=== PATIENT | female | born 1995 | race African-American/Black ===

== ENCOUNTER 2017-12-08 16:28 | Emergency (ER) | payer OTHER, SELFPAY ==
[2017-12-08 17:03] LABS: Bilirubin Negative (Negative); Blood, Urine Small (Negative); Clarity CLEAR (Clear); Glucose, Urine (Dipstick) Negative (Negative); Leukocyte Small (Negative); Nitrite Negative (Negative); Protein, Urine (Dipstick) Negative (Neg-Trace)
[2017-12-08 17:04] LABS: Pregnancy Test - Urine (BHCG) Negative (Negative); Pregu Control Background? CLEAR/WHITE (CLR/WHITE); Pregu Control Bar Appear? YES (CONTROL BAR)
[2017-12-08 17:05] LABS: Bacteria/HPF Rare-Few HPF (None Seen); Hyaline Casts/LPF 0-3 HYALINE CAST LPF (0-3 Hyaline); Pathc Cast-AUWi Flag 0.43 (0-2.49)
[2017-12-08] MEDS ORDERED: Ondansetron ODT 4 MG TAB ONE (17:31)
== END 2017-12-08 18:30 | disposition home or self-care (01) ==
LOC: ERS 16:28
DX: R11.0 Nausea (principal)
CPT/HCPCS: 81003; 81015; 81025; 87086; 99283; Q0162

== ENCOUNTER 2017-12-27 16:21 | Emergency (ER) | payer SELFPAY ==
[2017-12-27 16:45] LABS: #Eosinphils 0.2 thou/uL (0.0-0.7); #Lymphocytes 2.6 thou/uL (1.20-3.40); #Monocytes 0.7 thou/uL (0.11-0.59); #Neutrophils 3.2 thou/uL (1.40-6.50); %Basophils 0.7 % (0.0-1.0); %Eosinophils 2.9 % (0.0-10.0); %Lymphocytes 38.7 % (21.0-51.0); %Monocytes 10.4 % (0.0-10.0); %Neutrophils 47.3 % (42.0-75.0); Mean Corpuscular HGB CONC 33.2 g/dL (32.0-36.0); Mean Corpuscular Hemoglobin 24.1 pg (27.0-31.0); Mean Corpuscular Volume 72.7 fL (78.0-98.0); Mean Platelet Volume 8.2 fL (7.4-10.4); Platelet Count 302 thou/uL (130-400); RBC Distribution Width 13.6 % (11.5-14.5); Red Blood Cell (RBC) Count 4.99 mill/uL (4.20-5.40); White Blood Cell (WBC) Count 6.8 thou/uL (4.8-10.8)
[2017-12-27 17:05] LABS: ALT (SGPT) 10 U/L (8-55); AST (SGOT) 10 U/L (5-34); Albumin 4.1 g/dL (3.5-5.0); Alkaline Phosphatase 66 U/L (40-150); Anion Gap 12 mmol/L (10-20); BUN (Urea Nitrogen) 12 mg/dL (7.0-18.7); Bilirubin, Total 0.2 mg/dL (0.2-1.2); Calc. Creatinine Clearance 0 mL/min (70-130); Calcium 9.9 mg/dL (7.8-10.44); Carbon Dioxide 24 mmol/L (22-29); Chloride 107 mmol/L (98-107); Estimated GFR-MDRD Greater than 90; Globulin 3.2 g/dL (2.4-3.5); Glucose 81 mg/dL (70-105); MDiff Complete? YES; Microcytosis SLIGHT = 6-15 cells (100X) (0-5/hpf); PLT Morphology Comment Appears Adequate; Polychromasia SLIGHT = 2-3 cells (100X) (0-2/hpf); Potassium 3.8 mmol/L (3.5-5.1); Protein, Total 7.3 g/dL (6.0-8.3); Sodium 139 mmol/L (136-145)
== END 2017-12-27 17:21 | disposition left against medical advice (07) ==
LOC: ERS 16:21
DX: Z53.21 Procedure and treatment not carried out due to patient leaving prior to being seen by health care provider (principal)
CPT/HCPCS: 36415; 80053; 85025

== ENCOUNTER 2018-02-02 14:20 | Emergency (ER) | payer SELFPAY ==
[2018-02-02 15:52] LABS: Bilirubin Negative (Negative); Blood, Urine Negative (Negative); Clarity CLEAR (Clear); Glucose, Urine (Dipstick) Negative (Negative); Leukocyte Moderate (Negative); Nitrite Negative (Negative); Protein, Urine (Dipstick) Negative (Neg-Trace); Specific Gravity, Urine 1.026 (1.002-1.036); pH, Urine 7.5 (5.0-9.0)
[2018-02-02 15:54] LABS: Pregnancy Test - Urine (BHCG) POSITIVE (Negative); Pregu Control Background? CLEAR/WHITE (CLR/WHITE); Pregu Control Bar Appear? YES (CONTROL BAR); Specific Gravity 1.026 (1.002-1.036)
[2018-02-02 15:55] LABS: Bacteria/HPF None Seen HPF (None Seen); Hyaline Casts/LPF 0-3 HYALINE CAST LPF (0-3 Hyaline); Pathc Cast-AUWi Flag 0.29 (0-2.49); Squamous Epithelial 0-3 HPF (0-3)
[2018-02-03 22:22] LABS: Chlamydia by PCR Not Detected (NotDetected); GC by PCR Not Detected (NotDetected)
== END 2018-02-02 18:01 | disposition home or self-care (01) ==
LOC: ERS 14:20
DX: O98.811 Other maternal infectious and parasitic diseases complicating pregnancy, first trimester (principal); B37.3 Candidiasis of vulva and vagina; Z3A.00 Weeks of gestation of pregnancy not specified
CPT/HCPCS: 81003; 81015; 81025; 87480; 87491; 87510; 87591; 87660; 99283

== ENCOUNTER 2018-02-15 00:39 | Emergency (ER) | payer OTHER, SELFPAY ==
[2018-02-15 01:37] LABS: Bilirubin Negative (Negative); Blood, Urine Moderate (Negative); Clarity CLEAR (Clear); Glucose, Urine (Dipstick) Negative (Negative); Leukocyte Negative (Negative); Nitrite Negative (Negative); Protein, Urine (Dipstick) Negative (Neg-Trace); Specific Gravity, Urine 1.012 (1.002-1.036); Urobilinogen 0.2 mg/dL (0.2-1.0)
[2018-02-15 01:39] LABS: Bacteria/HPF None Seen HPF (None Seen); Hyaline Casts/LPF 4-6 HYALINE CAST LPF (0-3 Hyaline); Pathc Cast-AUWi Flag 1.16 (0-2.49); Squamous Epithelial 0-3 HPF (0-3); WBC/HPF 0-3 HPF (0-3)
--- NOTE | 2018-02-15 08:41 | ULT ---
PRELIMINARY REPORT/[facility]/EMERGENTY AFTER-HOURS PROCEDURE US First Trimester, Transabdominal CLINICAL HISTORY: Signs and symptoms; Lmp or gestational age (in weeks): 6w6d; Antepartum complicatio ns; Bleeding; ; Patient HX: Light bleeding x 1 day TECHNIQUE: Real-time transabdominal obstetrical ultrasound of the maternal pelvis and a first trimest er with image documentation. COMPARISON: No relevant prior studies available. FINDINGS: Gestation: Single intrauterine gestational sac with mean sac diameter measuring 2.01 cm. The crown-ru mp length measures 0.8 cm. There is a small yolk sac. cardiac activity measures 132 bpm. Small crescentic hypoechoic area along the inferior aspect of the gestational sac measuring approximately 1.1 x 0.7 x 0.8 cm. Placenta/amniotic fluid: Cannot be adequately evaluated due to the early gestational age. Uterus/cervix: The uterus is anteverted and measures 11.5 x 6.1 x 6.2 cm. No myometrial mass. Ovaries: Right and left ovarian measurements are 2.7 x 2 x 3.1 cm and 2.6 x 2 x 3.6 cm, respectively. No mass. Free fluid: No free fluid. IMPRESSION: 1. Single live intrauterine gestation. Small subchorionic hemorrhage. 2. Estimated gestational age by ultrasound is 6 weeks 6 days. 3. Estimated due date by ultrasound is 10/05/2018. Thank you for allowing us to participate in the care of your patient. Dictated and Authenticated by: Macy Howard MD 02/15/2018 2:15 AM Central Time ([place] & [place]) FINAL REPORT PELVIS ULTRASOUND: HISTORY: First-trimester bleeding. Light bleeding. TECHNIQUE: Transabdominal and endovaginal imaging of the pelvis is performed. Ovaries are interrogated with gra y scale, color flow, Doppler imaging, and spectral waveform analysis. FINDINGS: This report is in agreement with the preliminary report by [facility]. A single live intrauterine gestation with heart tones at a rate of 132 b.p.m. Small subchorionic hemorrhage is noted. POS: [facility]
[2018-02-15 17:12] LABS: Chlamydia by PCR DETECTED (NotDetected); GC by PCR Not Detected (NotDetected)
== END 2018-02-15 02:48 | disposition home or self-care (01) ==
LOC: ERS 00:39
DX: O20.0 Threatened abortion (principal); Z3A.01 Less than 8 weeks gestation of pregnancy
CPT/HCPCS: 36415; 76856; 81003; 81015; 84702; 86900; 86901; 87491; 87591; 93976; 99284

== ENCOUNTER 2018-02-16 09:57 | Emergency (ER) | payer MEDICAID, OTHER ==
[2018-02-16] MEDS ORDERED: Lidocaine 1% PF 5 ML VIAL ONE (11:54)
[2018-02-16] MEDS ORDERED: Azithromycin 250 MG TAB ONE (11:54)
[2018-02-16] MEDS ORDERED: cefTRIAXone\\ROCEPHIN 250 MG VIAL ONE (11:54)
== END 2018-02-16 13:01 | disposition home or self-care (01) ==
LOC: ERS 09:57 → ER/OP 13:01
DX: Z51.89 Encounter for other specified aftercare (principal)
CPT/HCPCS: 96372; J0696; J2001

== ENCOUNTER 2018-03-15 03:28 | Emergency (ER) | payer OTHER | END 2018-03-15 03:50 | disposition home or self-care (01) | LOC: ERS 03:28 | DX: O99.611 Diseases of the digestive system complicating pregnancy, first trimester (principal); K04.7 Periapical abscess without sinus; Z3A.11 11 weeks gestation of pregnancy | CPT/HCPCS: 99282 ==

== ENCOUNTER 2018-03-17 08:16 | Emergency (ER) | payer OTHER ==
[2018-03-17 09:22] LABS: Hemoglobin 11.6 g/dL (12.0-16.0); Mean Corpuscular Hemoglobin 23.2 pg (27.0-31.0); Mean Corpuscular Volume 72.5 fL (78.0-98.0); Mean Platelet Volume 8.7 fL (7.4-10.4); Platelet Count 287 thou/uL (130-400); RBC Distribution Width 14.2 % (11.5-14.5); Red Blood Cell (RBC) Count 4.98 mill/uL (4.20-5.40); White Blood Cell (WBC) Count 6.9 thou/uL (4.8-10.8)
[2018-03-17 09:45] LABS: ALT (SGPT) Less than 7 U/L (8-55); AST (SGOT) 12 U/L (5-34); Albumin 3.9 g/dL (3.5-5.0); Alkaline Phosphatase 41 U/L (40-150); Anion Gap 9 mmol/L (10-20); BUN (Urea Nitrogen) 10 mg/dL (7.0-18.7); Bilirubin, Total 0.2 mg/dL (0.2-1.2); Calc. Creatinine Clearance 0 mL/min (70-130); Calcium 9.4 mg/dL (7.8-10.44); Carbon Dioxide 24 mmol/L (22-29); Chloride 106 mmol/L (98-107); Estimated GFR-MDRD Greater than 90; Globulin 3.4 g/dL (2.4-3.5); Glucose 80 mg/dL (70-105); Potassium 3.9 mmol/L (3.5-5.1); Protein, Total 7.3 g/dL (6.0-8.3); Sodium 135 mmol/L (136-145)
[2018-03-17 09:47] LABS: #Basophils 0.1 thou/uL (0.0-0.2); #Eosinphils 0.1 thou/uL (0.0-0.7); #Lymphocytes 2.3 thou/uL (1.20-3.40); #Monocytes 0.7 thou/uL (0.11-0.59); #Neutrophils 3.7 thou/uL (1.40-6.50); %Basophils 1.1 % (0.0-1.0); %Eosinophils 1.7 % (0.0-10.0); %Lymphocytes 33.6 % (21.0-51.0); %Monocytes 9.8 % (0.0-10.0); %Neutrophils 53.8 % (42.0-75.0); Anisocytosis SLIGHT = 6-15 cells (100X) (0-5/hpf); MDiff Complete? YES; Microcytosis SLIGHT = 6-15 cells (100X) (0-5/hpf); PLT Morphology Comment Appears Adequate
== END 2018-03-17 10:36 | disposition home or self-care (01) ==
LOC: ERS 08:16
DX: O99.341 Other mental disorders complicating pregnancy, first trimester (principal); F41.0 Panic disorder [episodic paroxysmal anxiety]; Z3A.01 Less than 8 weeks gestation of pregnancy
CPT/HCPCS: 36415; 80053; 84443; 85025; 93005

== ENCOUNTER 2018-04-08 10:30 | Emergency (ER) | payer OTHER ==
[2018-04-08 11:23] LABS: Bilirubin Small (Negative); Blood, Urine Small (Negative); Clarity CLOUDY (Clear); Glucose, Urine (Dipstick) Negative (Negative); Leukocyte Small (Negative); Nitrite Negative (Negative); Protein, Urine (Dipstick) Trace mg/dL (Neg-Trace); Specific Gravity, Urine 1.036 (1.002-1.036)
[2018-04-08 11:26] LABS: Pathc Cast-AUWi Flag 1.45 (0-2.49)
[2018-04-08 11:37] LABS: Bacteria/HPF 1+ HPF (None Seen); Hyaline Casts/LPF 0-3 HYALINE CAST LPF (0-3 Hyaline)
== END 2018-04-08 13:00 | disposition home or self-care (01) ==
LOC: ERS 10:30
DX: O20.9 Hemorrhage in early pregnancy, unspecified (principal); Z3A.14 14 weeks gestation of pregnancy
CPT/HCPCS: 81003; 81015; 99284

== ENCOUNTER 2018-05-01 12:16 | Emergency (ER) | payer OTHER ==
[2018-05-01 12:56] LABS: Bilirubin Negative (Negative); Blood, Urine Trace (Negative); Clarity CLEAR (Clear); Glucose, Urine (Dipstick) Negative (Negative); Leukocyte Trace (Negative); Nitrite Negative (Negative); Protein, Urine (Dipstick) Negative (Neg-Trace); Specific Gravity, Urine 1.014 (1.002-1.036); Urobilinogen 0.2 mg/dL (0.2-1.0)
[2018-05-01 12:57] LABS: Bacteria/HPF None Seen HPF (None Seen); Hyaline Casts/LPF 0-3 HYALINE CAST LPF (0-3 Hyaline); Pathc Cast-AUWi Flag 0.43 (0-2.49)
== END 2018-05-01 13:48 | disposition home or self-care (01) ==
LOC: ERS 12:16
DX: O99.89 Other specified diseases and conditions complicating pregnancy, childbirth and the puerperium (principal); R30.0 Dysuria; Z3A.17 17 weeks gestation of pregnancy; Z79.899 Other long term (current) drug therapy
CPT/HCPCS: 81003; 81015; 87086; 99283

== ENCOUNTER 2018-06-28 09:22 | Day surgery (SDC) | payer OTHER ==
[2018-06-28 10:29] VITALS: BP 114/57; TEMP 98.3; BMI 35.9
--- NOTE | 2018-06-28 10:57 | PDOC.LDHP ---
Labor and Delivery H&P Chief complaint: abdominal pain HPI: 22 y/o at 26.1 wga presents for evaluation of abdominal pain. Pain began yesterday and is described as short and intermittent. These episodes usually last seconds to a few minutes. Has occurred 3x since yesterday evening and is left sided extending to the suprapubic area. One of the episodes of pain was associated with SOB which resolved after 1 minute after she turned over. Upon evaluation, her pain has resolved and she has no complaints. She denies chest pain, dysuria, increased frequency, vaginal bleeding, vaginal discharge, dizziness. complicated by treated Chlamydia infection and treated BV. ALso complicated by anemia of . ROS: GEN: No f/c ENT: No rhinorrhea, sore throat CARDIO: + SOB; no CP or palpitations RESP: no wheezing or cough MSK: no denice, joint or muscle pain NEuro: No weakness Dating criteria: first trimester ultrasound Current medications: pre-irene vitamins Previous surgical history: other (TERM x1) Allergies/Adverse Reactions: Allergies Allergy/AdvReac Type Severity Reaction Status Date / Time No Known Allergies Allergy Verified 06/28/18 10:29 - Physical Exam Vital signs reviewed and normal: yes Heart: RRR Lungs: nonlabored breathing Abdomen: gravid (nontender abdomen, no R/G, nondistended, moderate suprapubic ttp. Psych: Appropriately alert and oriented. NEURO: DTR 2/4, no focal defecits MSK: No edema in LE, MAEW) Extremeties: no edema FHT: category 1 - OB Labs Blood type: A RH: positive Antibody Screen: negative HIV: negative RPR: negative HEPSAg: negative 1 hour GCT: negative GBS: unknown Urine drug screen: not done Additional Labs: UA performed today: No evidence of UTI - Assessment 22 y/o F at 26.1 wga per 9w sono seen in triage for evaluation of abdominal pain. 1. sIUP: monitoring reveals reactive strip and category 1 throughout her stay. No contractions witnessed. Labs reviewed and no abnormality. 2. Ligament Pain: Resolved at time of exam. UA negative and abdominal likely 2/ 2 broad ligament pain as it is short and sharp, and resolves with adjusting position. Recommend Tylenol, hydration, and to f/u with her PCP (Dr Wakefield) per scheduled appointments. No evidence of PTL, but patient counseled on labor precautions including, LOF, vaginal bleeding, regular contractions, or severe abdominal pain, and kick counts. Pt verbalizes understanding and agrees with plan to discharge. 3. hx/o Anemia of - asymptomatic, f/u outpatient. Dispo: Discharge patient from triage with close f/u with Dr Wakefield Addendum - Attending - Attending Attestation Date/Time: 06/29/18 8100 I personally evaluated the patient and discussed the management with Dr. Baird yesterday morning. I agree with the History, Examination, Assessment and Plan documented above with any addition or exceptions noted below.
[2018-06-28 12:08] LABS: Bilirubin Negative (Negative); Blood, Urine Negative (Negative); Clarity CLEAR (Clear); Glucose, Urine (Dipstick) Negative (Negative); Leukocyte Trace (Negative); Nitrite Negative (Negative); Protein, Urine (Dipstick) Negative (Neg-Trace); Specific Gravity, Urine 1.013 (1.002-1.036); Urobilinogen 0.2 mg/dL (0.2-1.0); pH, Urine 7.5 (5.0-9.0)
[2018-06-28 12:13] LABS: Urine Culture Reflex No No
== END 2018-06-28 12:20 | disposition home or self-care (01) ==
LOC: ERS 09:22 → L&D/OP 09:22 → EDSTATUS 09:26 → L&D/OP 12:20
PROVIDERS: ATTEND Family Medicine
DX: O47.02 False labor before 37 completed weeks of gestation, second trimester (principal); Z3A.26 26 weeks gestation of pregnancy; O99.012 Anemia complicating pregnancy, second trimester
CPT/HCPCS: 81003; 99282

== ENCOUNTER 2018-07-22 05:05 | Day surgery (SDC) | payer OTHER ==
[2018-07-22 05:36] VITALS: BMI 36.6
--- NOTE | 2018-07-22 06:01 | PDOC.FPROB ---
FMR OB H&P: HPI - History of Present Illness Chief Complaint: Discharge and vaginal pressure Indentification: 22 yo @ 29.4 by 9.3 wk sono History of Present Illness: 22 yo @ 29.4 by 9.3 wk sono ([place] 10/03/18) presents for new onset thick, white creamy vaginal discharge that started today. Patient states "It was dripping from me" and she was concerned. It was not watery. Also states that she has had vaginal pressure for the past few days. Denies contractions, vaginal bleeding, LOF; and baby is moving well. She has a history of BV and chlamydia this that she was treated for (partner treated for chlamydia as well). She also has a history of yeast infections in the past. 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: hx of chlamydia and BV and patient reports yeast infection in the past - Surgical History Sx History: L knee meniscal repair - Social History Social History: no tobacco/alcohol/drug use - Family History Family History: Denies cardiac problems in family history, denies genetic disorders FMR OB H&P: Medications - Current Home Medications: Medication Instructions Recorded Confirmed Type Vit No.129/Iron/Folic 1 tab PO DAILY 10/05/16 06/28/18 History [ One Daily Tablet] Ferrous Sulfate 325 mg PO DAILY #14 tablet 07/22/18 Rx Fluconazole [Diflucan] 150 mg PO ONE #1 tablet 07/22/18 Rx Polyethylene Glycol 3350 [Miralax] 17 gm PO DAILY #14 pk 07/22/18 Rx Allergies/Adverse Reactions: Allergies Allergy/AdvReac Type Severity Reaction Status Date / Time No Known Allergies Allergy Verified 01/15/19 10:29 FMR OB H&P: ROS - Review of Systems General: reports: other (occasional occipital headaches, not new - she had prior to ). denies: fever/chills Eyes: denies: eye pain, vision changes ENT: denies: nasal congestion, rhinorrhea, sore throat Cardiovascular: denies: chest pain, palpitation, edema Respiratory: denies: cough, congestion, shortness of breath Gastrointestinal: reports: constipation. denies: abdominal pain, nausea, vomiting, diarrhea, bright red blood Genitourinary (Female): reports: vaginal discharge, vaginal pressure. denies: dysuria, hematuria, vaginal pain, vaginal bleeding, contractions Musculoskeletal: denies: pain, tenderness Integumentary: denies: itching, rash Breast: denies: skin changes, pain/tenderness FMR OB H&P: Vital Signs - Maternal Vital signs: Vital signs stable T 98.1 117/57 P 82 RR 18 - Heart Tones Baseline: 130 Variability: moderate (reactive and reassuring) FMR OB H&P: Physical Exam - Physical Exam General: NAD, awake, alert and oriented HEENT: normocephalic and atraumatic, PERRLA, grossly normal hearing, oropharynx clear Neck: supple, no LAD Heart: RRR, normal S1/S2, no murmurs/rubs/gallops, pulses present, no edema General: CTAB, no respiratory distress, no wheezing Abdomen: soft, gravid Musculoskeletal: pulses present, FROM in all four extremities, no atrophy Skin: no rash, good tugor Lymphatic: no unusual bruising or bleeding, no petechia Psychiatric: intact recent and remote memory, normal mood and affect FMR OB H&P: A/P - Problem List (1) Constipation Status: Chronic Code(s): K59.00 - CONSTIPATION, UNSPECIFIED (2) related condition in third trimester Status: Acute Code(s): O26.93 - RELATED CONDITIONS, UNSPECIFIED, THIRD TRIMESTER (3) Vaginal discharge during Status: Acute Code(s): O26.899 - OTH RELATED CONDITIONS, UNSPECIFIED TRIMESTER; N89.8 - OTHER SPECIFIED NONINFLAMMATORY DISORDERS OF VAGINA (4) Anemia affecting in third trimester Status: Acute Code(s): O99.013 - ANEMIA COMPLICATING , THIRD TRIMESTER Discussion: Date/Time: 07/22/18 0601 22 yo @ 29.4 by 9.3 wk selena presents for vaginal discharge Likely vaginal candidiasis, vs normal leukorrhea -White thick creamy discharge -VP3 and GC pending -Fluconazole for empiric treatment -Other treatment pending results of testing. Will call patient with results. Anemia of -Hgb 9.6 in clinic 07/18/18 -Prescribed daily ferrous sulfate to her pharmacy -Prescribed daily miralax as she is having constipation, and this will likely worsen with Fe supplementation Constipation -Miralax prescribed as above sIUP -FHTs reactive and reassuring, no contractions -follow up for routine care at [facility] - Attending - Attending Attestation Date/Time: 07/22/18 1120 I personally evaluated the patient and discussed the management with Dr. Leija. I agree with the History, Examination, Assessment and Plan documented above with any addition or exceptions noted below. Althought the discharge is bothersome, further questioning reveals it was not "dripping", not watery. Only thick white discharge consistent with a yeast infection or leucorrhoea.
[2018-07-24 18:28] LABS: GC by PCR Not Detected (NotDetected)
[2018-07-24 18:35] LABS: Chlamydia by PCR DETECTED (NotDetected)
== END 2018-07-22 07:37 | disposition home or self-care (01) ==
LOC: L&D/OP 05:05
PROVIDERS: ATTEND Obstetrics & Gynecology
DX: O99.89 Other specified diseases and conditions complicating pregnancy, childbirth and the puerperium (principal); N89.8 Other specified noninflammatory disorders of vagina; K59.09 Other constipation; O99.013 Anemia complicating pregnancy, third trimester; Z3A.29 29 weeks gestation of pregnancy; Z79.2 Long term (current) use of antibiotics; Z79.899 Other long term (current) drug therapy
CPT/HCPCS: 87480; 87491; 87510; 87591; 87660; 99283

== ENCOUNTER 2018-08-22 20:36 | Day surgery (SDC) | payer OTHER ==
[2018-08-22 21:07] VITALS: BMI 36.1
--- NOTE | 2018-08-22 21:57 | PDOC.FPROB ---
FMR OB H&P: HPI - History of Present Illness Chief Complaint: vaginal and rectal pressure Indentification: History of Present Illness: The patient is a 22YOF @ 34 wks today by LMP/9.3 week sono who presented to L&D today with a CC of vaginal and rectal pressure that began yesterday. Per the patient, she has felt the pressure-like sensation on and off during this but it usually goes away fairly quickly. However, yesterday she had multiple episodes of it and today around 13:00 she felt the pressure again and reports that it has not gone away since. She denies any vaginal pain, constipation, hematochezia/melena, vaginal bleeding, loss of fluid or discharge. She reports regular movement and denies any contractions as well. Primary Care Physician: EVIE Harden FMR OB H&P: Current - Care : 2 Para: 1001 Gestational age: 34 weeks Due date: 10/03/17 Dating Criteria: LMP & 9.3 week sono Course/Complications: Threatened in 1st trimester Chlamydia + in first trimester w/ negative test of cure on 08/09/18 + for BV on 06/15/18 - OB Labs Blood type: A RH: positive Antibody Screen: negative HIV: negative RPR: negative HepBsAg: negative Rubella: immune Gonorrhea: negative Chlamydia: negative 1 hour gtt: 122 H&H: 9.6 on 07/18/18 - First Trimester Ultrasound First trimester: subchorionic hemorrhage - Anatomy Survey Anatomy survey: normal FMR OB H&P: History - Past Medical History PMH: none - OB History OB History: First , term - 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 No tobacco, EtOH, or drug use. - Family History Family History: non-contributory FMR OB H&P: Medications - Current Home Medications: Medication Instructions Recorded Confirmed Type Vit No.129/Iron/Folic 1 tab PO DAILY 10/05/16 06/28/18 History [ One Daily Tablet] Allergies/Adverse Reactions: Allergies Allergy/AdvReac Type Severity Reaction Status Date / Time No Known Allergies Allergy Verified 08/22/18 21:00 FMR OB H&P: ROS - Review of Systems General: denies: fever/chills Eyes: denies: vision changes, double vision ENT: denies: nasal congestion, sore throat Cardiovascular: denies: chest pain Respiratory: denies: cough, shortness of breath Gastrointestinal: denies: abdominal pain, cramping, nausea, vomiting, diarrhea, constipation, bright red blood, dark black tarry stools Genitourinary (Female): reports: vaginal pressure. denies: incontinence, dysuria, hematuria, vaginal discharge, vaginal pain, vaginal bleeding, contractions Musculoskeletal: denies: pain Neurologic: denies: headache Integumentary: denies: itching, rash Psychological: denies: depression, anxiety FMR OB H&P: Vital Signs - Maternal Vital signs: WNLs - Heart Tones Baseline: 140 Variability: moderate Acceleration: present [place] contractions every: none FMR OB H&P: Physical Exam - Physical Exam General: NAD, awake, alert and oriented HEENT: normocephalic and atraumatic, grossly normal vision, grossly normal hearing Neck: supple, FROM Heart: RRR, normal S1/S2, pulses present, no edema General: CTAB, no respiratory distress Abdomen: soft, gravid, non-tender, bowel sound present Musculoskeletal: normal gait and station, FROM in all four extremities Neurological: cranial nerves II through XII intact, sensation to pain,touch and proprioception grossly normal, no focal deficit Skin: no rash, good tugor Lymphatic: no unusual bruising or bleeding, no purpura, no petechia Psychiatric: intact recent and remote memory, good judgement and insight, normal mood and affect - Pelvic Exam Vulva: normal hair distribution, appropriate alan stage, no lesions, no discharge, no blood SVE: C/T/H FMR OB H&P: A/P - Problem List (1) Anemia affecting in third trimester Status: Acute Code(s): O99.013 - ANEMIA COMPLICATING , THIRD TRIMESTER (2) related condition in third trimester Status: Acute Code(s): O26.93 - RELATED CONDITIONS, UNSPECIFIED, THIRD TRIMESTER Disposition: 22YO @ 34 weeks by LMP/9.3 week sono who presented to L&D w/ a CC of vaginal and rectal pressure. Vaginal pressure in third trimester of : - FHTs reassuring and cervical check revealed a closed/thick/high cervix. No concern for labor. Patient reassured that she is having normal pressure sensation in late stages of . Instructed to follow-up for regularly scheduled OB appts at [facility] for remainder of . sIUP: - FHTs reassuring and no contractions noted on monitor. - Instructed to follow-up at [facility] for regularly scheduled appts. Anemia in : - Aware, patient on PO Fe in addition to PNVs. Discussion: Date/Time: 08/22/182151 This H&P was discussed with [] and [] who agree with the above documentation and plan. Addendum - Attending - Attending Attestation Date/Time: 08/22/182340 I personally evaluated the patient and discussed the management with Dr. Levy I agree with the History, Examination, Assessment and Plan documented above with any addition or exceptions noted below. 22 yo female at 34.0 wks by LMP/9.3 wk sono here for evaluation of vaginal and rectal pressure. Patient without any other complaints. SVE cl/th/high. Intact. Cephalic presentation. FHT reactive. No contractions. Vaginal pressure related to GA and state. Ok to d/c to home with follow up with PCP. Daniel
== END 2018-08-22 22:23 | disposition home or self-care (01) ==
LOC: L&D/OP 20:36
PROVIDERS: ATTEND Student in an Organized Health Care Education/Training Program
DX: O26.893 Other specified pregnancy related conditions, third trimester (principal); R10.2 Pelvic and perineal pain; O99.013 Anemia complicating pregnancy, third trimester; Z3A.34 34 weeks gestation of pregnancy
CPT/HCPCS: 99282

== ENCOUNTER 2018-09-04 14:38 | Day surgery (SDC) | payer OTHER ==
[2018-09-04 15:08] VITALS: BMI 36.2
[2018-09-04 15:09] VITALS: BP 123/61; TEMP 97.7
--- NOTE | 2018-09-04 16:22 | PDOC.LDHP ---
Labor and Delivery H&P Chief complaint: other (pelvic pain) HPI: 22 yo at 35.6w by LMP/9.3w sono here with pelvic pain. She thinks she may have had a few contractions overnight. Today she has had pelvic pain that radiates from her hips/low back to groin when she moves. She has not taken any medications or tried anything for the pain. She denies pain without movement, denies LOF, VB, discharge, dysuria, hematuria or frequency. She is feeling baby move regularly. Current gestational age (weeks): 35 (35.6) Dating criteria: last menstrual period, first trimester ultrasound (9.3w) Grav: 2 Para: 1 Current complications: none Abnormal US findings: No (subchorionic in 1T, none since, fundal placenta) Current medications: pre- vitamins Allergies/Adverse Reactions: Allergies Allergy/AdvReac Type Severity Reaction Status Date / Time No Known Allergies Allergy Verified 08/22/18 21:00 Social history: none - Physical Exam Vital signs reviewed and normal: yes General: NAD, resting Heart: RRR Lungs: nonlabored breathing Abdomen: NTTP Extremeties: no edema FHT: category 1 (140/mod/+accels/no decels) [place] contractions every: 30-40 minutes - Vaginal Exam cm dilated: 0 Effacement: 0% Station: -3 - OB Labs Blood type: A RH: positive Antibody Screen: negative HIV: negative RPR: negative HEPSAg: negative 1 hour GCT: negative GBS: unknown Rubella: immune Additional Labs: 1 hr 122 - Plan -: 22 yo at 35.6 here with round ligament pain 1. Tylenol/hydration/stretching - declines tylenol here F/u with Dr. Harden tomorrow Patient seen with Dr. Sinclair. Addendum - Attending - Attending Attestation Date/Time: 09/05/18 2744 I personally evaluated the patient and discussed the management with Dr. Mei at the time of her evaluation last night. I agree with the History, Examination, Assessment and Plan documented above with any addition or exceptions noted below.
== END 2018-09-04 16:00 | disposition home or self-care (01) ==
LOC: L&D/OP 14:38
PROVIDERS: ATTEND Family Medicine
DX: O99.89 Other specified diseases and conditions complicating pregnancy, childbirth and the puerperium (principal); R10.2 Pelvic and perineal pain; M25.551 Pain in right hip; Z3A.35 35 weeks gestation of pregnancy; Z79.899 Other long term (current) drug therapy
CPT/HCPCS: 99282

== ENCOUNTER 2018-09-26 21:00 | Inpatient (IN) | payer OTHER ==
[2018-09-26 21:38] VITALS: BMI 37.2
--- NOTE | 2018-09-26 22:07 | PDOC.FPROB ---
FMR OB H&P: HPI - History of Present Illness Chief Complaint: elective IOL Indentification: 22 yo @ 39.0 wk by 9.3 sono History of Present Illness: 22 yo @ 39.0 wk by 9.3 wk sono presents for elective IOL. Denies contractions, vag bleeding, LOF, abnormal discharge. baby moving well. Reports pelvic pressure. Denies headache/fever, vision changes, abdominal pain, swelling. Primary Care Physician: Dr. Chuck Harden FMR OB H&P: Current - Care : 2 Para: 1001 Gestational age: 39.0 Due date: 10/03/18 Dating Criteria: 9.3 wk sono, cw LMP Course/Complications: Chlamydia x2 s/p KERLINE x2 anemia of trichomonas s/p KERLINE Suicidal ideation, resolved - OB Labs Blood type: A RH: positive Antibody Screen: negative HIV: negative RPR: negative HepBsAg: negative Rubella: immune Gonorrhea: negative Chlamydia: positive 1 hour gtt: 122 GBS: negative H&H: 9.6 on 08/22/18 - Anatomy Survey Anatomy survey: fundal placenta FMR OB H&P: History - Past Medical History PMH: Chlamydia x2 s/p KERLINE x2 anemia of trichomonas s/p KERLINE Suicidal ideation, resolved - OB History OB History: First baby- vaginal delivery - 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: Chlamydia x2 s/p KERLINE x2 trichomonas s/p KERLINE - Surgical History Sx History: Left knee surgery - Social History Social History: Denies t/a/drug use - Family History Family History: mother HTN, no cardiac disease, no known familial disease FMR OB H&P: Medications - Current Home Medications: Medication Instructions Recorded Confirmed Type Vit No.129/Iron/Folic 1 tab PO DAILY 10/05/16 09/26/18 History [ One Daily Tablet] Allergies/Adverse Reactions: Allergies Allergy/AdvReac Type Severity Reaction Status Date / Time No Known Allergies Allergy Verified 08/22/18 21:00 FMR OB H&P: ROS - Review of Systems General: denies: fever/chills Eyes: denies: eye pain, vision changes ENT: denies: nasal congestion, rhinorrhea Cardiovascular: denies: chest pain, palpitation Respiratory: denies: cough, congestion Gastrointestinal: denies: abdominal pain, cramping, nausea, vomiting, diarrhea Genitourinary (Female): reports: vaginal pressure. denies: dysuria, vaginal discharge, vaginal bleeding, contractions Neurologic: denies: numbness, weakness Integumentary: denies: rash Psychological: reports: depression, anxiety FMR OB H&P: Vital Signs - Maternal Vital signs: Vital Signs - First Documented Temp Pulse Resp BP Pulse Ox 97.7 F 97 18 123/63 96 09/26/18 21:29 09/26/18 21:29 09/26/18 21:29 09/26/18 21:29 09/26/18 21:29 - Heart Tones Baseline: 140 Variability: moderate Acceleration: present Deceleration: variable (occasional) Category: category 1 [place] contractions every: none FMR OB H&P: Physical Exam - Physical Exam General: NAD, awake, alert and oriented HEENT: normocephalic and atraumatic, PERRLA Neck: supple, trachea midline, no LAD Heart: RRR, normal S1/S2, no murmurs/rubs/gallops, pulses present, no edema General: CTAB, no respiratory distress, no wheezing Abdomen: soft, bowel sound present Musculoskeletal: pulses present, FROM in all four extremities Skin: no rash, good tugor, capillary refill <2 seconds Psychiatric: intact recent and remote memory, good judgement and insight, normal mood and affect - Pelvic Exam Vulva: normal hair distribution, appropriate alan stage, no lesions, no blood SVE: 0/0/-3 Membranes: intact Presentation: cephalic, seen on bedside sono Estimated Weight: 8 lbs FMR OB H&P: A/P - Problem List (1) Term Status: Acute Code(s): Z34.80 - ENCOUNTER FOR SUPRVSN OF NORMAL , UNSP TRIMESTER (2) Anemia affecting in third trimester Status: Acute Code(s): O99.013 - ANEMIA COMPLICATING , THIRD TRIMESTER Discussion: Date/Time: 09/26/187 22 yo @ 39.0 wk by 9.3 wk sono cw LMP presents for elective IOL tIUP -GBS neg -Cephalic, seen on bedside sono -FHTs: 130, mod variability, 2 variables present, +accels, no contractions -SVE: 0/0/-3 @ 1045 -Start cytotec induction -Pt desires epidural -Plans to breast and bottle feed Anemia of -CBC- Hgb 9.7 -2 units type and cross Hx chlamydia -s/p KERLINE Hx Trichomoniasis -s/p KERLINE Hx of suicidal ideation -Resolved currently, aware -Watch for s/s pp depression after delivery, plan for close outpatient follow up Pj Leija MD, PGY-1 Addendum - Attending - Attending Attestation Date/Time: 09/26/18 0327 I personally evaluated the patient and discussed the management with Dr. Leija I agree with the History, Examination, Assessment and Plan documented above with any addition or exceptions noted below. 22 yo female at 39.0 wks by 9.3 wk sono her for elective IOL. [place] 10/03/18 Patient denies any VB, LOF or decreased movement. Reports occasional contractions. Bedside sono: Cephalic presentation. SVE unfavorable FHT cat 1. Cxt intermittent. 1. IOL: R/B/A discussed. Questions addressed. Consents signed. Will proceed with miso insertion. Continuous monitoring. Epidural per patient request. Minimize IV/PO narcotics due to issues. Repeat SVE in 4 hours or prn. 2. sIUP: Records reviewed. IOB labs reviewed. Anatomy sono reviewed. Unsure on pap smear. Will need to locate results. s/p Tdap. 1 hour gtt 122. 3T negative. GBS negative. 3. hx of STIs this : CT and Trich. KERLINE negative. Would repeat CT/Gc today. 4. Anemia of progressed to iron def: Continue supplemental iron. 5. hx of MDD with hx of SI: Monitor closely for SI and progression during pp period. SSRI. WillayMD
[2018-09-26] MEDS: Lactated Ringer's 1,000 ML IV SCH (22:45)
[2018-09-26] MEDS ORDERED: Butorphanol Tartrate 1 MG/ML VIAL SLOW IVP PRN (22:47)
[2018-09-26] MEDS ORDERED: Ondansetron PF 4 MG/2 ML Vial IVP PRN (22:47)
[2018-09-26] MEDS ORDERED: Acetaminophen 500 MG TAB PO PRN (22:47)
[2018-09-26] MEDS ORDERED: Lidocaine 1% (PF) 30 ML VIAL SC PRN (22:47)
[2018-09-26] MEDS ORDERED: Promethazine HCl 25 MG/ML VIAL IM PRN (22:47)
[2018-09-26] MEDS ORDERED: NS / Oxytocin 40 units/1000ml 1,000 ML IV PRN (22:47)
[2018-09-26] MEDS ORDERED: Docusate 100 MG CAP PO PRN (22:47)
[2018-09-26] MEDS ORDERED: Ibuprofen 800 MG TAB PO PRN (22:47)
[2018-09-26] MEDS ORDERED: Misoprostol 100 MCG TAB ONE (23:11)
[2018-09-26] MEDS: Misoprostol 100 MCG TAB VAG SCH (23:16)
[2018-09-26 23:37] LABS: #Basophils 0.1 thou/uL (0.0-0.2); #Eosinphils 0.1 thou/uL (0.0-0.7); #Lymphocytes 2.3 thou/uL (1.20-3.40); #Neutrophils 4.8 thou/uL (1.40-6.50); %Basophils 0.7 % (0.0-1.0); %Eosinophils 1.7 % (0.0-10.0); %Lymphocytes 27.4 % (21.0-51.0); %Monocytes 11.7 % (0.0-10.0); %Neutrophils 58.6 % (42.0-75.0); Hemoglobin 9.7 g/dL (12.0-16.0); MDiff Complete? YES; Mean Corpuscular HGB CONC 32.5 g/dL (32.0-36.0); Mean Corpuscular Volume 73.9 fL (78.0-98.0); Mean Platelet Volume 9.2 fL (7.4-10.4); Microcytosis SLIGHT = 6-15 cells (100X) (0-5/hpf); Platelet Count 223 thou/uL (130-400); RBC Distribution Width 14.3 % (11.5-14.5); Red Blood Cell (RBC) Count 4.04 mill/uL (4.20-5.40); White Blood Cell (WBC) Count 8.2 thou/uL (4.8-10.8)
[2018-09-26 23:45] LABS: Syphilis Antibody Nonreactive (Nonreactive); Syphilis Antibody Index 0.04 S/CO (<1.00 Non-Reactive)
[2018-09-26 23:46] LABS: HBSAg Index 0.33 S/CO (0-0.99); Hep B Surf Ag Non-Reactive S/CO (NonReactive)
[2018-09-27] MEDS: Ferrous Sulfate 325 MG TAB PO SCH (02:54)
--- NOTE | 2018-09-27 02:54 | PDOC.LDPN ---
Labor & Delivery Progress Note - Subjective Subjective: painful contractions - Objective Vital signs reviewed and normal: yes General: NAD, breathing through contractions SVE: 2/ Effacement: 50% Station: -3 FHT: category 1, variability present [place] contractions every: 3-5 min - Assessment (1) Term Code(s): Z34.80 - ENCOUNTER FOR SUPRVSN OF NORMAL , UNSP TRIMESTER Current Visit: Yes Status: Acute (2) Anemia affecting in third trimester Code(s): O99.013 - ANEMIA COMPLICATING , THIRD TRIMESTER Current Visit: No Status: Acute Plan: continue plan of care -: 09/27/18 @ 0245 22 yo @ 39.0 wk by 9.3 wk sono cw LMP presents for elective IOL tIUP -GBS neg -Cephalic, seen on bedside sono -SVE: 0/0/-3 @ 2245, cytotec placed 2315 -SVE: 2.5/50/-3 @ 0130 -FHTs: 140, mod variability, +accels, contractions q3-5 min -Pt desires epidural -Plans to breast and bottle feed -will recheck SVE in 30 mins Anemia of -CBC- Hgb 9.7 -2 units type and cross Hx chlamydia -s/p KERLINE Hx Trichomoniasis -s/p KERLINE Hx of suicidal ideation -Resolved currently, aware -Watch for s/s pp depression after delivery, plan for close outpatient follow up Pj Leija MD, PGY-1
[2018-09-27] MEDS: Lactated Ringer's 1,000 ML IV SCH ×2 (03:59→15:21)
--- NOTE | 2018-09-27 06:25 | PDOC.LDPN ---
Labor & Delivery Progress Note - Subjective Subjective: comfortable, painful contractions - Objective Vital signs reviewed and normal: yes General: NAD, resting, breathing through contractions Dilation: 3 Effacement: 50% Station: -3 FHT: category 1 [place] contractions every: q2-3 min - Assessment (1) Term Code(s): Z34.80 - ENCOUNTER FOR SUPRVSN OF NORMAL , UNSP TRIMESTER Current Visit: Yes Status: Acute (2) Anemia affecting in third trimester Code(s): O99.013 - ANEMIA COMPLICATING , THIRD TRIMESTER Current Visit: No Status: Acute Plan: continue plan of care -: 09/27/18 @ 0615 22 yo @ 39.0 wk by 9.3 wk sono cw LMP presents for elective IOL tIUP -GBS neg -Cephalic, seen on bedside sono -SVE: 0/0/-3 @ 2245, cytotec placed 2315 -SVE: 2.5/50/-3 @ 0130 -SVE: 3/50/-3 @ 0615 -FHTs: 140, mod variability, +accels, contractions q2-5 min, starting to space out more -Pt desires epidural -Plans to breast and bottle feed -will recheck SVE in 2-4 hrs -If contractions continue to space, will give second dose cytotec to continue cervical ripening Anemia of -CBC- Hgb 9.7 -2 units type and cross Hx chlamydia -s/p KERLINE Hx Trichomoniasis -s/p KERLINE Hx of suicidal ideation -Resolved currently, aware -Watch for s/s pp depression after delivery, plan for close outpatient follow up Pj Leija MD, PGY-1
[2018-09-27] MEDS ORDERED: NS / Oxytocin 40 units/1000ml 1,000 ML IV PRN (06:35)
[2018-09-27] MEDS ORDERED: Fentanyl 4 mcg/Bup 0.1% Cadd 100 ML ONE ×2 (06:36→14:33)
[2018-09-27] MEDS ORDERED: NS w/ Oxytocin 10 units 500 ML IV SCH (06:45)
[2018-09-27] MEDS: Fentanyl 4 mcg/Bupivacaine 0.1% Cassette 100 ML EPIDURAL SCH ×2 (07:12→14:36)
[2018-09-27] MEDS ORDERED: Promethazine HCl 25 MG/ML VIAL IM PRN (07:22)
[2018-09-27] MEDS ORDERED: Lactated Ringer's 500 ML IV PRN (07:22)
[2018-09-27] MEDS ORDERED: Ondansetron PF 4 MG/2 ML Vial IVP PRN (07:22)
[2018-09-27] MEDS ORDERED: Acetaminophen 325 MG TAB PO PRN (07:22)
[2018-09-27] MEDS ORDERED: Eucerin (Mineral Oil/Petrolatum,White) 30 gm Jar TOP PRN (07:22)
[2018-09-27] MEDS ORDERED: Naloxone HCl 0.4 mg/ml Vial IVP PRN ×2 (07:22)
[2018-09-27] MEDS ORDERED: ePHEDrine/0.9% NaCl/PF SYRINGE 50 mg/10 ml SLOW IVP PRN (07:22)
[2018-09-27] MEDS ORDERED: diphenhydrAMINE 50 MG/ML VIAL IVP PRN (07:22)
[2018-09-27] MEDS ORDERED: Communication Order-Pharmacy FS SCH (07:30)
[2018-09-27] MEDS ORDERED: Sodium Chloride 0.9% 500 ML IV SCH (07:45)
[2018-09-27] MEDS ORDERED: Dextrose 5% in Water 1,000 ML IV SCH (08:10)
[2018-09-27] MEDS: Dextrose 5%-Lactated Ringers 1,000 ML IV SCH (08:14)
--- NOTE | 2018-09-27 10:17 | PDOC.LDPN ---
Labor & Delivery Progress Note - Subjective Subjective: comfortable - Objective Vital signs reviewed and normal: yes General: NAD Uterine fundus: non tender Dilation: 4 Effacement: 75% Station: -1 FHT: category 1 (130/mod/+ accels/no decels) [place] contractions every: 1-2min - Assessment (1) Term Code(s): Z34.80 - ENCOUNTER FOR SUPRVSN OF NORMAL , UNSP TRIMESTER Current Visit: Yes Status: Acute (2) Anemia affecting in third trimester Code(s): O99.013 - ANEMIA COMPLICATING , THIRD TRIMESTER Current Visit: No Status: Acute Plan: continue plan of care, labor augmentation, pitocin for augmentation -: 22 yo @ 39.0 wk by 9.3 wk sono cw LMP presents for elective IOL tIUP - GBS neg - Cephalic, seen on bedside sono - SVE: /-1. On Pit @6 - Continue serial cervical checks - FHTs: 130 Cat 1 - Resting comfortably with epidural. Diastolic BP decreased after epidural. s/p 500ml NS, ephedrine, currently on D5LR @125. - Plans to breast and bottle feed Anemia of - CBC- Hgb 9.7 - 2U type and crossed Hx chlamydia -s/p KERLINE Hx Trichomoniasis -s/p KERLINE Hx of suicidal ideation - Resolved - Watch for s/s pp depression after delivery, plan for close outpatient follow up Addendum - Attending - Attending Attestation Date/Time: 09/27/18 7793 I personally evaluated the patient and discussed the management with Dr. Schmidt. I agree with the History, Examination, Assessment and Plan documented above with any addition or exceptions noted below.
[2018-09-27] MEDS ORDERED: Bupivacaine 0.25% HCL 30 ML VIAL ONE (11:11)
[2018-09-27] MEDS ORDERED: Bupivacaine/Epinephrine 0.25% 30 ML VIAL ONE (11:11)
[2018-09-27] MEDS ORDERED: ePHEDrine/0.9% NaCl/PF SYRINGE 50 mg/10 ml ONE (11:11)
[2018-09-27] MEDS ORDERED: Sodium Chloride 0.9% (PF) 10 ML VIAL ONE (11:11)
--- NOTE | 2018-09-27 13:50 | PDOC.LDPN ---
Labor & Delivery Progress Note - Subjective Subjective: painful contractions - Objective Vital signs reviewed and normal: yes General: breathing through contractions Uterine fundus: non tender Dilation: 7 Effacement: 100% Station: -1 FHT: category 2 (130/mod/+ accels/rare variable decels) AROM: clear fluid - Assessment (1) Term Code(s): Z34.80 - ENCOUNTER FOR SUPRVSN OF NORMAL , UNSP TRIMESTER Current Visit: Yes Status: Acute (2) Anemia affecting in third trimester Code(s): O99.013 - ANEMIA COMPLICATING , THIRD TRIMESTER Current Visit: No Status: Acute Plan: labor augmentation, pitocin for augmentation -: 22 yo @ 39.0 wk by 9.3 wk sono cw LMP presents for elective IOL tIUP - GBS neg - SVE: 100/-1. On Pit. AROM with clear fluid - Continue serial cervical checks - FHTs: 130 Cat 2 for rare variables - Epidural not controlling pain. Pt uncomfortable but breathing through contractions - Plans to breast and bottle feed Anemia of - CBC- Hgb 9.7 - 2U type and crossed Hx chlamydia -s/p KERLINE Hx Trichomoniasis -s/p KERLINE Hx of suicidal ideation - Resolved - Watch for s/s pp depression after delivery, plan for close outpatient follow up Addendum - Attending - Attending Attestation Date/Time: 09/27/18 1400 I personally evaluated the patient and discussed the management with Dr. Schmidt. I agree with the History, Examination, Assessment and Plan documented above with any addition or exceptions noted below. Will review strip and consider amnioinfusion if necessary for variables.
[2018-09-27] MEDS ORDERED: NS / Oxytocin 40 units/1000ml 1,000 ML IV SCH (17:09)
[2018-09-27] MEDS ORDERED: Bisacodyl 10 MG SUPP PR PRN (17:09)
[2018-09-27] MEDS ORDERED: Milk Of Magnesia 30 ML UDCUP PO PRN (17:09)
--- NOTE | 2018-09-27 18:03 | PDOC.OP ---
Operative Note - Operative Note Operative Note: Delivering Physician: Mabel Schmidt MD Attending: Dr Tuan Everett MD Procedure: Spontaneous Vaginal Delivery Anesthesia: epidural EBL: 100 ml Pre-op Diagnosis: 1. Term intrauterine in labor 2. Hx of chlamydia x2 with negative KERLINE x2 3. Anemia of 4. SI in , resolved 5. Trichomonas in with KERLINE Post-op Diagnosis: 1. Term intrauterine , delivered 2. Hx of chlamydia x2 with negative KERLINE x2 3. Anemia of 4. SI in , resolved 5. Trichomonas in with KERLINE Indications: A 22y/o female presents for elective IOL Delivery Note: This is 22yo F @39wks who delivered a viable F infant at 1624 on 09/27. Following an uneventful antepartum course, a vigorous female was delivered over an intact perineum in the occipitoanterior position. Anterior Shoulder and then remainder of the body delivered. No nuchal cord. The head was held down and mouth and nares were bulb suctioned. Cord clamped after delayed cord clamping and cut and cord blood collected. Placenta delivered intact in the [place] position with a 3 vessel cord noted. Fundal massage was performed and the fundus was firm. The cervix and vagina were inspected and found to be free of lacerations. went to nursery in good condition for routine care. Apgars were 8/9 at 1 & 5 minutes, respectively. Patient tolerated delivery well and went to after routine recovery/care. Addendum - Attending - Attending Attestation Date/Time: 09/28/18 8457 I was present for the entire delivery.
[2018-09-27] MEDS: Ibuprofen 800 MG TAB PO SCH (19:55)
[2018-09-27] MEDS: Docusate Calcium (SURFAK) 240 MG CAP PO SCH (21:59)
[2018-09-28] MEDS: Ibuprofen 800 MG TAB PO SCH ×3 (03:15→21:52)
--- NOTE | 2018-09-28 07:35 | PDOC.PP ---
Post Progress Note Post Day #: 1 Subjective: Pain is well controlled. Has been ambulating. No problems with urinating, cath removed overnight. Bottle feeding. PO intake tolerated: yes Flatus: yes Ambulation: yes Vital Signs (12 hours) Temp Pulse Resp BP 09/28/18 03:15 98.3 F 71 18 123/77 09/28/18 00:25 98.5 F 77 18 107/67 09/27/18 21:25 98.3 F 75 18 130/66 09/27/18 21:15 98.1 F 75 18 130/66 09/27/18 20:15 98.3 F 88 18 114/59 L Weight Weight 89.358 kg - Physical Examination General: NAD Cardiovascular: no m/r/g, RRR Respiratory: clear to auscultation bilaterally, non-labored breathing Abdominal: + bowel sounds, appropriately TTP Deviation from normal: uterus palpable below umbilicus Neurological: no gross focal deficits Psychiatric: A&Ox3, normal affect Result Diagrams: 09/26/18 22:58 Additional Labs: Post Labs Blood Type A POSITIVE 09/26/18 22:58 Hep Bs Antigen Non-Reactive S/CO (NonReactive) 09/26/18 22:58 (1) Term Code(s): Z34.80 - ENCOUNTER FOR SUPRVSN OF NORMAL , UNSP TRIMESTER Status: Acute (2) Anemia affecting in third trimester Code(s): O99.013 - ANEMIA COMPLICATING , THIRD TRIMESTER Status: Acute - Assessment/Plan 22 yo delivered TAGA female via at 1624 on 09/28 @39.0 wk by LMP c/w 9.3 wk US tIUP, delivered - Plans to breast and bottle feed - Continue routine care - Pain well controlled Anemia of - Hgb 9.7, EBL 100 Hx chlamydia -s/p KERLINE Hx Trichomoniasis -s/p KERLINE Hx of suicidal ideation, Resolved - Watch for s/s depression Addendum - Attending - Attending Attestation Date/Time: 09/28/18 7528 I personally evaluated the patient and discussed the management with Dr. Schmidt. I agree with the History, Examination, Assessment and Plan documented above with any addition or exceptions noted below.
[2018-09-28] MEDS ORDERED: Adacel (T-DAP) 0.5 ML SYRINGE IM ONE (09:00)
[2018-09-28] MEDS: Docusate Calcium (SURFAK) 240 MG CAP PO SCH ×2 (10:21→21:52)
[2018-09-28] MEDS: Ferrous Sulfate 325 MG TAB PO SCH ×2 (10:21→18:02)
[2018-09-28] MEDS: Misoprostol 100 MCG TAB VAG SCH ×2 (10:23→10:24)
[2018-09-28] MEDS: Dextrose 5%-Lactated Ringers 1,000 ML IV SCH (10:24)
[2018-09-29] MEDS: Ibuprofen 800 MG TAB PO SCH (05:42)
--- NOTE | 2018-09-29 07:57 | PDOC.PP ---
Post Progress Note Post Day #: 2 Subjective: Denies pain. Tolerating PO and ambulating. Voiding and stooling. Bottle feeding. PO intake tolerated: yes Flatus: yes Ambulation: yes Vital Signs (12 hours) Temp Pulse Resp BP Pulse Ox 09/29/18 05:40 97.9 F 83 18 115/64 98 Weight Weight 89.358 kg - Physical Examination General: NAD Cardiovascular: no m/r/g, RRR Respiratory: clear to auscultation bilaterally, non-labored breathing Abdominal: + bowel sounds, lochia (< period) Neurological: no gross focal deficits Psychiatric: A&Ox3, normal affect Result Diagrams: 09/26/18 22:58 Additional Labs: Post Labs Blood Type A POSITIVE 09/26/18 22:58 Hep Bs Antigen Non-Reactive S/CO (NonReactive) 09/26/18 22:58 (1) Term Code(s): Z34.80 - ENCOUNTER FOR SUPRVSN OF NORMAL , UNSP TRIMESTER Status: Acute (2) Anemia affecting in third trimester Code(s): O99.013 - ANEMIA COMPLICATING , THIRD TRIMESTER Status: Acute - Assessment/Plan 22 yo delivered TAGA female via at 1624 on 09/28 @39.0 wk by LMP c/w 9.3 wk US tIUP, delivered - Bottle feeding - Continue routine care - Pain well controlled Anemia of - Hgb 9.7, EBL 100 Hx chlamydia -s/p KERLINE Hx Trichomoniasis -s/p KERLINE Hx of suicidal ideation, Resolved - Watch for s/s depression - Denies tearfulness or sadness Addendum - Attending - Attending Attestation Date/Time: 09/29/18 1019 I personally evaluated the patient and discussed the management with Dr. Schmidt. I agree with and repeated the History, Examination, Assessment and Plan documented above with any addition or exceptions noted below.
[2018-09-29 08:01] VITALS: BP 123/77; TEMP 97.8
[2018-09-29] MEDS: Docusate Calcium (SURFAK) 240 MG CAP PO SCH (08:29)
[2018-09-29] MEDS: Ferrous Sulfate 325 MG TAB PO SCH (08:29)
== END 2018-09-29 11:35 | disposition home or self-care (01) | DRG 806 ==
LOC: L&D 21:00 → 3SW 09-27 19:30
PROVIDERS: ADMIT Emergency Medicine; ATTEND Emergency Medicine
PROC: 10E0XZZ Delivery of Products of Conception, External Approach (ICD-10-PCS; principal; 2018-09-28)
DX: O99.02 Anemia complicating childbirth (principal); R45.851 Suicidal ideations; Z37.0 Single live birth; O99.344 Other mental disorders complicating childbirth; D64.9 Anemia, unspecified; Z3A.39 39 weeks gestation of pregnancy
CPT/HCPCS: 36415; 51702; 76815; 86780; 86850; 86900; 86901; 87340; J2001; J2405; J2590; S0020

== ENCOUNTER 2018-10-02 16:16 | Emergency (ER) | payer OTHER ==
[2018-10-02] MEDS ORDERED: Metoclopramide HCl 10 MG/2 ML VIAL ONE (17:12)
[2018-10-02] MEDS ORDERED: diphenhydrAMINE 50 MG/ML VIAL ONE (17:12)
[2018-10-02 17:18] LABS: #Basophils 0.1 thou/uL (0.0-0.2); #Eosinphils 0.3 thou/uL (0.0-0.7); #Lymphocytes 2.1 thou/uL (1.20-3.40); #Monocytes 0.5 thou/uL (0.11-0.59); #Neutrophils 3.5 thou/uL (1.40-6.50); %Basophils 0.8 % (0.0-1.0); %Eosinophils 4.3 % (0.0-10.0); %Lymphocytes 32.1 % (21.0-51.0); %Monocytes 8.3 % (0.0-10.0); %Neutrophils 54.5 % (42.0-75.0); Hemoglobin 9.6 g/dL (12.0-16.0); Mean Corpuscular HGB CONC 30.7 g/dL (32.0-36.0); Mean Corpuscular Hemoglobin 22.8 pg (27.0-31.0); Mean Corpuscular Volume 74.2 fL (78.0-98.0); Platelet Count 270 thou/uL (130-400); RBC Distribution Width 14.3 % (11.5-14.5); Red Blood Cell (RBC) Count 4.22 mill/uL (4.20-5.40); White Blood Cell (WBC) Count 6.4 thou/uL (4.8-10.8)
--- NOTE | 2018-10-02 17:22 | CT ---
CT BRAIN 10/02/18 HISTORY: Headache. Noncontrast enhanced CT images of the brain obtained. Brain and bone windows obtained. CT images of brain demonstrate the brain to be unremarkable. No evidence of intracranial masses, hemo rrhages, strokes, or contusions seen. Ventricles are of normal size. IMPRESSION: Normal CT brain. POS: [facility]
[2018-10-02 17:39] LABS: ALT (SGPT) 23 U/L (8-55); AST (SGOT) 15 U/L (5-34); Albumin 3.1 g/dL (3.5-5.0); Alkaline Phosphatase 111 U/L (40-150); Anion Gap 12 mmol/L (10-20); BUN (Urea Nitrogen) 10 mg/dL (7.0-18.7); Bilirubin, Total 0.2 mg/dL (0.2-1.2); Calc. Creatinine Clearance 0 mL/min (70-130); Calcium 8.8 mg/dL (7.8-10.44); Carbon Dioxide 25 mmol/L (22-29); Chloride 109 mmol/L (98-107); Estimated GFR-MDRD Greater than 90; Globulin 2.3 g/dL (2.4-3.5); Glucose 90 mg/dL (70-105); Potassium 3.7 mmol/L (3.5-5.1); Protein, Total 5.4 g/dL (6.0-8.3); Sodium 142 mmol/L (136-145)
[2018-10-02 19:00] LABS: Bilirubin Negative (Negative); Blood, Urine Moderate (Negative); Clarity CLEAR (Clear); Glucose, Urine (Dipstick) Negative (Negative); Leukocyte Negative (Negative); Nitrite Negative (Negative); Protein, Urine (Dipstick) Negative (Neg-Trace); Specific Gravity, Urine 1.014 (1.002-1.036)
[2018-10-02 19:03] LABS: Bacteria/HPF None Seen HPF (None Seen); Hyaline Casts/LPF 0-3 HYALINE CAST LPF (0-3 Hyaline); Squamous Epithelial 0-3 HPF (0-3)
== END 2018-10-02 19:24 | disposition home or self-care (01) ==
LOC: ERS 16:16
DX: O99.89 Other specified diseases and conditions complicating pregnancy, childbirth and the puerperium (principal); R51 Headache
CPT/HCPCS: 70450; 80053; 81003; 81015; 85025; 94760; 96365; 96366; 96375; J1200; J2765

== ENCOUNTER 2018-12-15 03:46 | Emergency (ER) | payer OTHER ==
[2018-12-15] MEDS ORDERED: Ketorolac Tromethamine 30 MG/ML VIAL ONE (04:15)
[2018-12-15] MEDS ORDERED: Acetaminophen 500 MG TAB ONE (04:15)
[2018-12-15 04:30] LABS: BHCG - Serum Negative (NEGATIVE); Mean Corpuscular HGB CONC 32.9 g/dL (32.0-36.0); Mean Corpuscular Hemoglobin 23.5 pg (27.0-31.0); Mean Corpuscular Volume 71.4 fL (78.0-98.0); Mean Platelet Volume 9.7 fL (7.4-10.4); Platelet Count 280 thou/uL (130-400); Pregs Control Background? CLEAR/WHITE (CLR/WHITE); Pregs Control Bar Appear? YES (CONTROL BAR); RBC Distribution Width 13.9 % (11.5-14.5); Red Blood Cell (RBC) Count 5.12 mill/uL (4.20-5.40); White Blood Cell (WBC) Count 11.2 thou/uL (4.8-10.8)
[2018-12-15 04:47] LABS: ALT (SGPT) 13 U/L (8-55); AST (SGOT) 12 U/L (5-34); Albumin 4.3 g/dL (3.5-5.0); Alkaline Phosphatase 70 U/L (40-150); Anion Gap 14 mmol/L (10-20); BUN (Urea Nitrogen) 9 mg/dL (7.0-18.7); Bilirubin, Total 0.5 mg/dL (0.2-1.2); Calc. Creatinine Clearance 0 mL/min (70-130); Calcium 9.1 mg/dL (7.8-10.44); Carbon Dioxide 19 mmol/L (22-29); Chloride 104 mmol/L (98-107); Estimated GFR-MDRD Greater than 90; Globulin 3.2 g/dL (2.4-3.5); Glucose 91 mg/dL (70-105); Potassium 3.5 mmol/L (3.5-5.1); Protein, Total 7.5 g/dL (6.0-8.3); Sodium 133 mmol/L (136-145)
[2018-12-15 04:55] LABS: #Eosinphils 0.1 thou/uL (0.0-0.7); #Lymphocytes 1.5 thou/uL (1.20-3.40); #Neutrophils 8.6 thou/uL (1.40-6.50); %Basophils 0.2 % (0.0-1.0); %Eosinophils 0.6 % (0.0-10.0); %Lymphocytes 13.8 % (21.0-51.0); %Monocytes 8.6 % (0.0-10.0); %Neutrophils 76.9 % (42.0-75.0); MDiff Complete? YES; Microcytosis SLIGHT = 6-15 cells (100X) (0-5/hpf); Platelet Morphology Comment Appears Adequate
[2018-12-15 05:51] LABS: Bilirubin Negative (Negative); Blood, Urine Trace (Negative); Clarity Clear (Clear); Glucose, Urine (Dipstick) Normal (Negative); Leukocyte Negative Leu/uL (Negative); Nitrite Negative (Negative); Protein, Urine (Dipstick) Negative (Neg-Trace); RBC/HPF 0-3 HPF (0-3); Squamous Epithelial 0-3 HPF (0-3); Urobilinogen Normal mg/dL (Less than 2); WBC/HPF 0-3 HPF (0-3)
== END 2018-12-15 06:05 | disposition home or self-care (01) ==
LOC: ERS 03:46
DX: B34.9 Viral infection, unspecified (principal)
CPT/HCPCS: 80053; 81003; 84703; 85025; 87804; 96361; 96374; J1885

== ENCOUNTER 2019-01-09 22:14 | Emergency (ER) | payer OTHER ==
[2019-01-09 23:25] LABS: Pregnancy Test - Urine (BHCG) Negative (Negative); Pregu Control Background? CLEAR/WHITE (CLR/WHITE); Pregu Control Bar Appear? YES (CONTROL BAR)
[2019-01-09 23:31] LABS: Specific Gravity 1.031 (1.002-1.036)
[2019-01-09 23:32] LABS: Bacteria/HPF 3+ HPF (None Seen); Bilirubin Negative (Negative); Blood, Urine 2+ (Negative); Clarity Turbid (Clear); Glucose, Urine (Dipstick) Normal (Negative); Leukocyte 500 Leu/uL (Negative); Mucous/LPF 3+ LPF (<2+); Nitrite Negative (Negative); Protein, Urine (Dipstick) 100 mg/dL (Neg-Trace); RBC/HPF Greater than 50 HPF (0-3); Squamous Epithelial 0-3 HPF (0-3); Transitional Epithelial 0-3 HPF (None Seen); Urobilinogen 6 mg/dL (Less than 2); WBC/HPF Greater than 50 HPF (0-3)
== END 2019-01-09 23:45 | disposition home or self-care (01) ==
LOC: ERS 22:14
DX: N39.0 Urinary tract infection, site not specified (principal)
CPT/HCPCS: 81003; 81015; 81025; 99283

== ENCOUNTER 2019-01-16 19:58 | Emergency (ER) | payer OTHER, SELFPAY ==
[2019-01-16 20:22] LABS: Bilirubin Negative (Negative); Blood, Urine Negative (Negative); Clarity Clear (Clear); Glucose, Urine (Dipstick) Normal (Negative); Leukocyte 75 Leu/uL (Negative); Nitrite Negative (Negative); Protein, Urine (Dipstick) 10 mg/dL (Neg-Trace); Urobilinogen Normal mg/dL (Less than 2)
[2019-01-16 20:23] LABS: Bacteria/HPF 1+ HPF (None Seen)
[2019-01-16 20:37] LABS: #Basophils 0.1 thou/uL (0.0-0.2); #Eosinphils 0.2 thou/uL (0.0-0.7); #Lymphocytes 2.7 thou/uL (1.20-3.40); #Monocytes 0.7 thou/uL (0.11-0.59); #Neutrophils 2.7 thou/uL (1.40-6.50); %Basophils 1.4 % (0.0-1.0); %Eosinophils 3.3 % (0.0-10.0); %Lymphocytes 41.5 % (21.0-51.0); %Monocytes 11.4 % (0.0-10.0); %Neutrophils 42.3 % (42.0-75.0); Hemoglobin 11.5 g/dL (12.0-16.0); Mean Corpuscular HGB CONC 31.2 g/dL (32.0-36.0); Mean Corpuscular Hemoglobin 22.7 pg (27.0-31.0); Mean Corpuscular Volume 72.8 fL (78.0-98.0); Mean Platelet Volume 9.2 fL (7.4-10.4); Platelet Count 333 thou/uL (130-400); RBC Distribution Width 14.3 % (11.5-14.5); Red Blood Cell (RBC) Count 5.08 mill/uL (4.20-5.40); White Blood Cell (WBC) Count 6.5 thou/uL (4.8-10.8)
[2019-01-16 20:53] LABS: Anion Gap 13 mmol/L (10-20); BUN (Urea Nitrogen) 11 mg/dL (7.0-18.7); Calc. Creatinine Clearance 0 mL/min (70-130); Calcium 9.7 mg/dL (7.8-10.44); Carbon Dioxide 25 mmol/L (22-29); Chloride 105 mmol/L (98-107); Estimated GFR-MDRD Greater than 90; Glucose 84 mg/dL (70-105); Sodium 139 mmol/L (136-145)
[2019-01-16 20:57] LABS: BHCG - Serum Negative (NEGATIVE); Pregs Control Background? CLEAR/WHITE (CLR/WHITE); Pregs Control Bar Appear? YES (CONTROL BAR)
--- NOTE | 2019-01-16 21:21 | RAD ---
TWO VIEWS CHEST: Date: 01-17-19 History: Chest pain. FINDINGS: Lungs are clear. Heart and mediastinal contours are unremarkable. IMPRESSION: No acute findings. POS: [facility]
== END 2019-01-16 22:08 | disposition home or self-care (01) ==
LOC: ERS 19:58
DX: R07.89 Other chest pain (principal); R30.0 Dysuria; Z79.899 Other long term (current) drug therapy
CPT/HCPCS: 36415; 71046; 80048; 81003; 81015; 84484; 84703; 85025; 85379; 87077; 87086; 93005

== ENCOUNTER 2020-01-11 00:08 | Emergency (ER) | payer BC, OTHER ==
--- NOTE | 2020-01-11 07:40 | RAD ---
EXAM: Single view of the chest HISTORY: Chest pain COMPARISON: 01/16/2019 FINDINGS: Single view of the chest shows a normal sized cardiomediastinal silhouette. There is no gaston dence of consolidation, mass, or pleural effusion. The bones are unremarkable IMPRESSION: No evidence of acute cardiopulmonary disease
== END 2020-01-11 01:35 | disposition home or self-care (01) ==
LOC: ERS 00:08
DX: I10 Essential (primary) hypertension (principal); R07.9 Chest pain, unspecified
CPT/HCPCS: 71045; 99281

== ENCOUNTER 2023-08-09 17:01 | Emergency (ER) | payer OTHER ==
[2023-08-09 19:09] LABS: Bacteria/HPF None Seen HPF (None Seen); Bilirubin Negative (Negative); Blood, Urine Trace (Negative); CAUTI Indications for Culture Pelvic or flank pain; Clarity Clear (Clear); Glucose, Urine (Dipstick) Normal (Negative); Ketone, Urine Negative (Negative); Leukocyte Negative Leu/uL (Negative); Nitrite Negative (Negative); Protein, Urine (Dipstick) Negative (Neg-Trace); RBC/HPF 0-3 HPF (0-3); Specific Gravity, Urine 1.004 (1.002-1.036); Squamous Epithelial 0-3 HPF (0-3); Urobilinogen Normal mg/dL (Less than 2); WBC/HPF None Seen HPF (0-3); pH, Urine 6.5 (5.0-9.0)
[2023-08-09 19:15] LABS: Urine Culture Reflex No No
[2023-08-10 16:07] LABS: Chlam.trachomatis by PCR,Urine Not Detected (NotDetected); GC N.gonorrhoeae PCR,UrineVOID Not Detected (NotDetected)
== END 2023-08-09 21:13 | disposition home or self-care (01) ==
LOC: ERS 17:01
DX: N89.8 Other specified noninflammatory disorders of vagina (principal); I10 Essential (primary) hypertension
CPT/HCPCS: 81001; 87480; 87491; 87510; 87591; 87660; 99283

== ENCOUNTER 2024-04-17 07:48 | Emergency (ER) | payer OTHER, SELFPAY | END 2024-04-17 10:03 | disposition home or self-care (01) | LOC: ERS 07:48 | DX: M79.10 Myalgia, unspecified site (principal); I10 Essential (primary) hypertension | CPT/HCPCS: 87428; 99283 ==